=== PATIENT | female | born 1955 | race Caucasian/White ===

== ENCOUNTER → 2018-04-02 | Outpatient (CLI) | payer OTHER ==
[~2018-04-02] MED LIST: ACET650SUP; LEVE500 PO; LISI5 PO; LOPE2C; MONT10T PO; PROM25 PO; UNK BP MED; UNK CHOLESTEROL MED
[2018-04-04 15:07] LABS: HPV 16 Negative (Negative); HPV 18 Negative (Negative); HPV OTHER HR TYPES Negative (Negative)
== END ==
LOC: LAB 16:05 → LAB SHORT 16:05
PROVIDERS: Obstetrics & Gynecology
DX: Z01.419 Encounter for gynecological examination (general) (routine) without abnormal findings (principal)
CPT/HCPCS: 87624; G0123

== ENCOUNTER → 2019-01-10 | Outpatient (CLI) | payer OTHER, MEDICARE ==
[2019-01-10 16:18] LABS: Adenovirus F 40/41 Not Detected (NOT DETECT); Astrovirus Not Detected (NOT DETECT); Campylobacter Sp Not Detected (NOT DETECT); Cryptosporidium Not Detected (NOT DETECT); Cyclospora Cayetanensis Not Detected (NOT DETECT); E. Coli O157 Not Detected (NOT DETECT); Entamoeba Histolytica Not Detected (NOT DETECT); Enteroaggregative E. coli-EAEC Not Detected (NOT DETECT); Enteropathogenic E. coli-EPEC Not Detected (NOT DETECT); Enterotoxigenic E. coli-ETEC Not Detected (NOT DETECT); Giardia Lamblia Not Detected (NOT DETECT); Norovirus GI/GII Not Detected (NOT DETECT); Plesiomonas Shigelloides Not Detected (NOT DETECT); Rotavirus A Not Detected (NOT DETECT); Salmonella Sp Not Detected (NOT DETECT); Sapovirus Not Detected (NOT DETECT); Shiga Toxin-prod E. coli-STEC Not Detected (NOT DETECT); Shigella/Enteroin E. coli-EIEC Not Detected (NOT DETECT); Vibrio Cholerae Not Detected (NOT DETECT); Vibrio Sp Not Detected (NOT DETECT); Yersinia Enterocolitica Not Detected (NOT DETECT)
== END | disposition home or self-care (01) ==
LOC: LAB EV 12:20
PROVIDERS: Physician Assistant Surgical
DX: K52.9 Noninfective gastroenteritis and colitis, unspecified (principal)
CPT/HCPCS: 0097U

== ENCOUNTER → 2019-11-04 | Outpatient (CLI) | payer OTHER, MEDICARE ==
[2019-11-05 14:08] LABS: HPV 16 Negative (Negative); HPV 18 Negative (Negative); HPV OTHER HR TYPES Negative (Negative)
== END | disposition home or self-care (01) ==
LOC: LAB SHORT 12:00 → LAB 12:00
PROVIDERS: Obstetrics & Gynecology
DX: Z01.419 Encounter for gynecological examination (general) (routine) without abnormal findings (principal)
CPT/HCPCS: 87624; G0123

== ENCOUNTER 2022-06-05 00:27 | Emergency (ER) | payer MEDICARE, BC ==
[2022-06-05] MEDS ORDERED: DOXY100 PO (01:23)
[2022-06-05] MEDS ORDERED: ROSU5 PO (01:23)
[2022-06-05] MEDS ORDERED: Flonase 0.05% N16 GM (01:24)
[2022-06-05] MEDS ORDERED: GABA300 PO (01:24)
[2022-06-05] MEDS ORDERED: TRAM50 PO (01:25)
[2022-06-05] MEDS ORDERED: ONDA4ODT MM (02:54)
== END 2022-06-05 03:58 | disposition home or self-care (01) ==
DX: R19.7 Diarrhea, unspecified (principal); I10 Essential (primary) hypertension; Z88.5 Allergy status to narcotic agent; Z79.899 Other long term (current) drug therapy

== ENCOUNTER 2023-12-30 17:04 | Emergency (ER) | payer MEDICARE, BC ==
[~2023-12-30] VITALS: Ht 160 cm; Wt 61.2 kg
[~2023-12-30 17:04] MED LIST changes: +DOXY100 PO; +Flonase 0.05% N16 GM; +GABA300 PO; +ONDA4ODT MM; +ROSU5 PO; +TRAM50 PO
[2023-12-30] MEDS ORDERED: NS 1,000 ML IV SCH (17:15)
[2023-12-30 17:42] LABS: BASOPHILS ABSOLUTE AUTO 0.03 K/mm3 (0.00-0.23); BASOPHILS PERCENT AUTO 0 % (0-2); EOSINOPHILS ABSOLUTE AUTO 0.02 K/mm3 (0.00-0.68); EOSINOPHILS PERCENT AUTO 0 % (0-6); Hematocrit 45.7 % (33.0-51.0); Hemoglobin 15.3 g/dL (11.5-16.0); IMMATURE GRAN ABSOLUTE AUTO 0.05 K/mm3 (0.00-0.10); IMMATURE GRAN PERCENT AUTO 1 % (0-1); LYMPHOCYTES ABSOLUTE AUTO 1.73 K/mm3 (0.84-5.20); LYMPHOCYTES PERCENT AUTO 23 % (21-46); MONOCYTES ABSOLUTE AUTO 0.61 K/mm3 (0.16-1.47); MONOCYTES PERCENT AUTO 8 % (4-13); Mean Corpuscular HGB 29.4 pg (26.0-34.0); Mean Corpuscular HGB Conc 33.5 g/dL (31.5-36.5); Mean Corpuscular Volume 88 fL (80-100); Mean Platelet Volume 9.6 fL (9.1-12.4); NEUTROPHILS ABSOLUTE AUTO 5.02 K/mm3 (1.96-9.15); NEUTROPHILS PERCENT AUTO 67 % (41-73); Platelet Count 191 K/mm3 (150-400); RDW Coefficient Variation 11.9 % (11.7-14.2); RDW Standard Deviation 38.6 fL (35.1-46.3); Red Blood Cell Count 5.21 M/mm3 (3.80-5.20); White Blood Cell Count 7.46 K/mm3 (4.00-11.30)
[2023-12-30 18:13] LABS: Albumin, Blood 4.2 g/dL (3.4-5.0); Albumin/Globulin Ratio 1.3 (0.8-1.8); Bilirubin, Total 0.6 mg/dL (0.1-1.0); Bun/Creatinine Ratio 22.9 (12.0-20.0); Calcium, Blood 9.8 mg/dL (8.5-10.1); Creatinine, Blood 0.7 mg/dL (0.40-1.00); Globulin, Blood 3.3 g/dL (2.2-4.0); Magnesium, Blood 2.4 mg/dL (1.6-2.4); Potassium, Blood 3.7 mmol/L (3.5-5.5); Total Protein, Blood 7.5 g/dL (6.4-8.2)
[2023-12-30 19:16] VITALS: BP 149/91
[2023-12-30 19:26] LABS: Source, Urine Clean Catch
[2023-12-30 19:28] LABS: Appearance, Urine Clear (Clear); Bilirubin, Urine Neg (Neg); Blood, Urine Neg (Neg); Color, Urine Yellow (P-Yellow); Glucose Qualitative, Urine Neg (Neg); Ketones, Urine Neg (Neg); Leukocyte Esterase, Urine 1+ (Neg); Nitrite, Urine Neg (Neg); Protein, Urine 1+ (Neg); Specific Gravity, Urine 1.015 (1.003-1.022); Urobilinogen, Urine 2+ (Normal)
[2023-12-30 19:36] LABS: Bacteria Few /hpf; Red Blood Cells, Urine Not Seen /hpf (0-2); Squamous Epithelial Cells Few /hpf (Few)
[2023-12-30] MEDS ORDERED: Lactated Ringer's 1,000 ML IV ONE (20:50)
== END 2023-12-30 22:27 | disposition home or self-care (01) ==
LOC: ER 17:04
PROVIDERS: Physician Assistant
DX: A08.4 Viral intestinal infection, unspecified (principal); J30.2 Other seasonal allergic rhinitis; I10 Essential (primary) hypertension; E78.00 Pure hypercholesterolemia, unspecified; Z79.51 Long term (current) use of inhaled steroids; Z79.899 Other long term (current) drug therapy
CPT/HCPCS: 80053; 81001; 83735; 85025; 87086; 99283; J7120